=== PATIENT | male | born 1960 | race Caucasian/White ===

== ENCOUNTER → 2019-03-22 15:58 | Outpatient (BNVA) | payer MEDICARE, MEDICAID, SELFPAY | PROVIDERS: Family Provider Nurse Practitioner; PCP Nurse Practitioner; Visit Provider Nurse Practitioner Psychiatric/Mental Health | DX: F41.1 Generalized anxiety disorder (principal); F17.210 Nicotine dependence, cigarettes, uncomplicated | CPT/HCPCS: 99213 ==

== ENCOUNTER 2022-09-25 01:34 | Emergency (ER) | payer MEDICARE, MEDICAID, SELFPAY ==
[2022-09-25 02:00] VITALS: BP 138/86; PULSE 109; RESP 18; TEMP 36.8; O2SAT 98; BMI 26.6
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
[2022-09-25 02:36] VITALS: RESP 18
[2022-09-25] MEDS: oxyCODONE-APAP 5-325 mg Tablet 2 TAB PO (02:36)
[2022-09-25 03:39] VITALS: BP 161/84; PULSE 106; RESP 18; O2SAT 97
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
--- NOTE | 2022-09-27 15:02 | DCPLANNER ---
Addendum entered by Isa Souza 09/27/22 15:11: Patient called family preservation caseworker back and declined at this time. Original Note: manager embalmer funeral director called patient due to no primary care physician - no answer at this time.
== END 2022-09-25 03:44 | disposition home or self-care (01) ==
PROVIDERS: Emergency Provider Emergency Medicine
DX: S93.421A Sprain of deltoid ligament of right ankle, initial encounter (principal); E11.9 Type 2 diabetes mellitus without complications; F17.210 Nicotine dependence, cigarettes, uncomplicated; V20.49XA Other motorcycle driver injured in collision with pedestrian or animal in traffic accident, initial encounter
CPT/HCPCS: 73610; 99283

== ENCOUNTER 2023-02-20 23:37 | Observation (INO) | payer MEDICARE, MEDICAID, SELFPAY ==
[2023-02-20 23:37] VITALS: BP 147/72; PULSE 97; RESP 18; TEMP 36.9; O2SAT 100; BMI 28.5
[2023-02-20 23:52] VITALS: BP 147/72; PULSE 100; RESP 18; O2SAT 96
[2023-02-21] VITALS (63 sets, daily range): BP systolic 99–148; BP diastolic 52–88; PULSE 62–98; RESP 13–18; TEMP 36.3–36.6; O2SAT 95–100; BMI 28.5
[2023-02-21 00:07] LABS: Add Urine Microscopic? NO; Charge for UA Resulting for Rev
[2023-02-21 00:08] LABS: Bilirubin Urine Neg (Negative); Blood Urine Neg (Negative); Glucose Urine UA 4+ (Normal); Influenza A by IFA negative (Negative); Influenza B by IFA negative (Negative); Ketones Urine Negative (Negative); Leukocyte Esterase Urine Negative (Negative); Nitrate Urine Negative (Negative); Protein Urine Neg (Negative); SARS Covid-2 Antigen negative (Negative); Specific Gravity, Urine 1.015 (1.005-1.030); Urine Appearance Clear (CLEAR); Urine Color Yellow (Yellow); Urobilinogen Urine Norm (Negative); pH Urine 5 (5-7)
--- NOTE | 2023-02-21 00:08 | XRR_ITS ---
PROCEDURE INFORMATION: Exam: XR Chest Exam date and time: 02/21/2023 12:13 AM Age: 62 years old Clinical indication: Chest pressure; Patient HX: C/O epigastric/chest pain. ; Additional info: Epigastric pain TECHNIQUE: Imaging protocol: Radiologic exam of the chest. Views: 1 view. COMPARISON: MR thoracic spin wo con* [id number] 01/13/2018 5:15 PM FINDINGS: Lungs: Unremarkable. No consolidation. Pleural spaces: Unremarkable. No pleural effusion. No pneumothorax. Heart/Mediastinum: Unremarkable. No cardiomegaly. Bones/joints: Unremarkable. XR/XR chest 1V portable [id number] IMPRESSION: No acute findings.
[2023-02-21] MEDS: lidocaine 2% viscous 15 ML, aluminum-mag hydrox-simethicon 30 ML, sucralfate oral liq 1 GM PO (00:18)
[2023-02-21] MEDS: ondansetron 2 mg/ML SDV 2 mL 4 MG IVP (00:23)
[2023-02-21] MEDS: morphine 4 mg/mL SDV 1 mL IVP (00:25)
[2023-02-21 00:26] LABS: Ketone (Acetest) Serum Negative (Negative)
--- NOTE | 2023-02-21 00:26 | ED_ITS ---
Documented by User: Karson Porter DO 02/21/23 03:00 HPI - Abdominal Pain 2 General: Chief Complaint: Abdominal Pain Stated Complaint: ABD PAIN Time Seen by Provider: 02/20/23 23:38 History of Present Illness: 62-year-old male patient with a history of diabetes, not currently on treatment, and hypertension. He presents with epigastric pain. He notes a bloating feeling to his stomach. He has been nauseated. No vomiting. No fever. No diarrhea. He was seen at [facility] earlier today with similar symptoms and treated for hypertension with lisinopril. He says he is just not been feeling well. Mild shortness of breath with activity. Associated Symptoms: Reports nausea; Denies chills, diarrhea, fever(s), hematochezia and vomiting Review of Systems 2 Const: Denies: fever(s), chills or body aches Eyes: Denies: change in vision ENMT: Denies: throat pain Card: Reports: chest pain (Epigastric); Denies: palpitations Resp: Reports: dyspnea; Denies: productive cough, non-productive cough or wheezing GI: Reports: abdominal pain and nausea; Denies: vomiting, diarrhea or hematochezia : Denies: flank pain Skin/Breast: Denies: rash Neuro: Denies: headache(s), weakness in extremities, dizziness or confusion PFS ED 2 PFSH: Medical History Cellulitis and abscess of face Diabetes mellitus, type II Nicotine dependence, cigarettes, uncomplicated Generalized anxiety disorder Social History Smoking and tobacco/nicotine status: current every day tobacco/nicotine user cigarettes Packs smoked per day: 1 Physical Exam 2 Const: COMMON NORMALS: no acute distress GENERAL APPEARANCE: cooperative; not ill appearing and not frail appearing HENMT: COMMON NORMALS: normocephalic, atraumatic and Normal external nose present HEAD & SCALP: normocephalic and atraumatic FACE & SINUS: normal facial exam and face symmetric NOSE: Normal external nose present Eye: COMMON NORMALS: Equal, round and reactive pupils present and EOMs intact bilaterally PUPIL: Yes Equal, round and reactive pupils present Neck/C-Spine: GENERAL: Yes trachea midline Chest: CHEST: Yes Symmetrical chest wall rise Resp: COMMON NORMALS: normal respiratory effort, No retractions, No use of accessory muscles and clear to auscultation bilaterally AUSCULTATION: clear to auscultation bilaterally Cardio: COMMON NORMALS: regular rate and regular rhythm RATE: regular rate RHYTHM: regular rhythm GI: INSPECTION: Yes abdominal distension (Mild) PALPATION: Yes Tenderness to palpation present (GI) (Epigastric) Extremity: COMMON NORMALS: no pedal edema Neuro: KAROL COMA SCALE: document GCS findings Karol coma scale eye opening: Spontaneous [place] coma scale verbal response: Orientated [place] coma scale motor response: Obey commands Karol coma scale total score: 15 S ENSORY EXAM: Yes extremities (intact) Psych: COMMON NORMALS: speech normal SPEECH: Yes normal speech Skin: COMMON NORMALS: no rashes or lesions noted GENERAL SKIN EXAM: no rashes or lesions noted Course 2 Vital Signs: Vital signs: Vital Signs Temperature 97.8 F 02/21/23 02:44 Pulse Rate 92 02/21/23 02:47 Respiratory Rate 18 02/21/23 02:47 Blood Pressure 110/62 02/21/23 02:47 Pulse Oximetry 99 02/21/23 02:47 Oxygen Delivery Me thod Room Air 02/21/23 02:47 MDM - Abdominal Pain Medical Decision Making 62-year-old male gentleman presenting with shortness of breath and epigastric pain. His vitals are stable. His hemoglobin is 6.2, repeated to ensure no lab error at 6.4. His platelet count is 100. His blood sugar is 276. Chest x-ray is negative. Abdominal CT is negative for acute pathology. There is some evidence of cirrhosis. This patient is not vomiting. He is having no black or tarry stools. No bright red blood per rectum. Source is unknown at this point. He is microcytic. He is crossmatched for 2 units. Spoke with hospitalist. Will observe. Lab Data 02/21/23 00:42 02/21/23 00:00 Labs/Radiology: Radiology Impressions Chest X-Ray 02/21/23 00:08 IMPRESSION: No acute findings. Abdomen/Pelvis CT 02/21/23 00:39 IMPRESSION: 1. Negative for acute abdominopelvic pathology. 2. No active gastrointestinal bleeding is identified but the assessment is suboptimal without true GI bleed CTA protocol which would also include noncontrast imaging and delayed venous imaging. 3. Multiple secondary findings of advanced liver cirrhosis are present. Laboratory Results WBC 3.64 10^3/uL (3.29-11.43) 02/21/23 00:00 RBC 2.62 10^6/uL (3.85-5.65) L 02/21/23 00:00 Hgb 6.40 g/dL (11.27-16.99) L* 02/21/23 00:42 Hct 20.6 % (37-53) L* 02/21/23 00:42 MCV 78.6 fl (82-101) L 02/21/23 00:00 MCH 23.7 pg (27-33) L 02/21/23 00:00 MCHC 30.1 g/dL (30-55) 02/21/23 00:00 RDW 17.6 % (12.1-15.1) H 02/21/23 00:00 Plt Count 100 10^3/cmm (157-399) L 02/21/23 00:00 MPV 11.1 fL (7.4-10.4) H 02/21/23 00:00 Neut % (Auto) 64.0 % 02/21/23 00:00 Lymph % (Auto) 23.6 % 02/21/23 00:00 [place] % (Auto) 10.2 % 02/21/23 00:00 Eos % (Auto) 1.6 % 02/21/23 00:00 Baso % (Auto) 0.3 % 02/21/23 00:00 Neut # (Auto) 2.33 10^3/uL (1.8-7.7) 02/21/23 00:00 Lymph # (Auto) 0.9 10^3/uL (0.8-4.8) 02/21/23 00:00 [place] # (Auto) 0.4 10^3/uL (0.2-0.9) 02/21/23 00:00 Eos # (Auto) 0.1 10^3/uL (0.0-0.8) 02/21/23 00:00 Baso # (Auto) 0.0 10^3/uL (0.0-0.1) 02/21/23 00:00 Nucleated RBC % (auto) 0 % 02/21/23 00:00 Nucleated RBCs # 0.0 /100WBC 02/21/23 00:00 Sodium 135 mmol/L (136-145) L 02/21/23 00:00 Potassium 4.2 mmol/L (3.5-5.1) 02/21/23 00:00 Chloride 103 mmol/L (98-107) 02/21/23 00:00 Carbon Dioxide 22 mmol/L (22-29) 02/21/23 00:00 Anion Gap 14.2 (5-19) 02/21/23 00:00 BUN 17 mg/dL (8-23) 02/21/23 00:00 Creatinine 0.8 mg/dL (0.7-1.2) 02/21/23 00:00 GFR Calculation 97.3 mL/min (90-130) 02/21/23 00:00 Glucose 276 mg/dL (65-115) H 02/21/23 00:00 POC Glucose 288 mg/dL (70-110) H 02/21/23 00:22 Calculated Osmolality 291 mOsm/kg (285-295) 02/21/23 00:00 Calcium 8.3 mg/dL (8.5-10.5) L 02/21/23 00:00 Total Bilirubin 0.3 mg/dL (0.15-1.2) 02/21/23 00:00 AST 16 U/L (0-40) 02/21/23 00:00 ALT 15 U/L (0-41) 02/21/23 00:00 Alkaline Phosphatase 133 U/L (40-130) H 02/21/23 00:00 Creatine Kinase 62 U/L (39-308) 02/21/23 00:00 Troponin T Baseline 15 ng/L (0-15) 02/21/23 00:00 Delta Troponin T 0.33 ABS# (0-10) 02/21/23 02:25 NT-Pro-B Natriuret Pep 84 pg/mL (0-125) 02/21/23 00:00 Total Protein 6.2 g/dL (6.6-8.7) L 02/21/23 00:00 Albumin 3.2 g/dL (3.5-5.2) L 02/21/23 00:00 Globulin 3.0 g/dL (1.3-4.6) 02/21/23 00:00 Lipase 26 U/L (13-60) 02/21/23 00:00 Urine Color Yellow (Yellow) 02/21/23 00:00 Urine Appearance Clear (CLEAR) 02/21/23 00:00 Urine pH 5 (5-7) 02/21/23 00:00 Ur Specific [place] 1.015 (1.005-1.030) 02/21/23 00:00 Urine Protein Neg (Negative) 02/21/23 00:00 Urine Glucose (UA) 4+ (Normal) H 02/21/23 00:00 Urine Ketones Negative (Negative) 02/21/23 00:00 Urine Blood Neg (Negative) 02/21/23 00:00 Urine Nitrate Negative (Negative) 02/21/23 00:00 Urine Bilirubin Neg (Negative) 02/21/23 00:00 Urine Urobilinogen Norm mg/dL (Negative) 02/21/23 00:00 Ur Leukocyte Esterase Negative (Negative) 02/21/23 00:00 Serum Ketones Negative (Negative) 02/21/23 00:00 Influenza Type A Ag negative (Negative) 02/21/23 00:00 Influenza Type B Ag negative (Negative) 02/21/23 00:00 SARS-CoV-2 Ag (Rapid) negative (Negative) 02/21/23 00:00 Blood Type O Positive 02/21/23 00:42 Rho(D) Type Rh positive 02/21/23 00:42 Antibody Screen Negative 02/21/23 00:42 Crossmatch See Detail 02/21/23 00:42 All radiology interpretation(s) finalized by discharge Discharge Plan Discharge Patient Disposition: Placed in Observation Clinical Impression: Profound anemia Condition: Stable Coding Level of Care Code ED Talent Acquisition Director for Chg Fwd Documented by User: Dewayne Mc MD 02/21/23 00:42 HPI - Abdominal Pain 2 General: Chief Complaint: Abdominal Pain Stated Complaint: ABD PAIN Time Seen by Provider: 02/20/23 23:38 PFSH ED 2 PFSH: Medical History Cellulitis and abscess of face Diabetes mellitus, type II Nicotine dependence, cigarettes, uncomplicated Generalized anxiety disorder Social History Smoking and tobacco/nicotine status: current every day tobacco/nicotine user cigarettes Packs smoked per day: 1 Physical Exam 2 Neuro: KAROL COMA SCALE: document GCS findings Karol coma scale total score: 15 Course 2 Vital Signs: Vital signs: Vital Signs Temperature 97.8 F 02/21/23 02:44 Pulse Rate 92 02/21/23 02:47 Respiratory Rate 18 02/21/23 02:47 Blood Pressure 110/62 02/21/23 02:47 Pulse Oximetry 99 02/21/23 02:47 Oxygen Delivery Me thod Room Air 02/21/23 02:47 MDM - Abdominal Pain Lab Data 02/21/23 00:42 02/21/23 00:00 Labs/Radiology: Radiology Impressions Chest X-Ray 02/21/23 00:08 IMPRESSION: No acute findings. Abdomen/Pelvis CT 02/21/23 00:39 IMPRESSION: 1. Negative for acute abdominopelvic pathology. 2. No active gastrointestinal bleeding is identified but the assessment is suboptimal without true GI bleed CTA protocol which would also include noncontrast imaging and delayed venous imaging. 3. Multiple secondary findings of advanced liver cirrhosis are present. Laboratory Results WBC 3.64 10^3/uL (3.29-11.43) 02/21/23 00:00 RBC 2.62 10^6/uL (3.85-5.65) L 02/21/23 00:00 Hgb 6.40 g/dL (11.27-16.99) L* 02/21/23 00:42 Hct 20.6 % (37-53) L* 02/21/23 00:42 MCV 78.6 fl (82-101) L 02/21/23 00:00 MCH 23.7 pg (27-33) L 02/21/23 00:00 MCHC 30.1 g/dL (30-55) 02/21/23 00:00 RDW 17.6 % (12.1-15.1) H 02/21/23 00:00 Plt Count 100 10^3/cmm (157-399) L 02/21/23 00:00 MPV 11.1 fL (7.4-10.4) H 02/21/23 00:00 Neut % (Auto) 64.0 % 02/21/23 00:00 Lymph % (Auto) 23.6 % 02/21/23 00:00 [place] % (Auto) 10.2 % 02/21/23 00:00 Eos % (Auto) 1.6 % 02/21/23 00:00 Baso % (Auto) 0.3 % 02/21/23 00:00 Neut # (Auto) 2.33 10^3/uL (1.8-7.7) 02/21/23 00:00 Lymph # (Auto) 0.9 10^3/uL (0.8-4.8) 02/21/23 00:00 [place] # (Auto) 0.4 10^3/uL (0.2-0.9) 02/21/23 00:00 Eos # (Auto) 0.1 10^3/uL (0.0-0.8) 02/21/23 00:00 Baso # (Auto) 0.0 10^3/uL (0.0-0.1) 02/21/23 00:00 Nucleated RBC % (auto) 0 % 02/21/23 00:00 Nucleated RBCs # 0.0 /100WBC 02/21/23 00:00 Sodium 135 mmol/L (136-145) L 02/21/23 00:00 Potassium 4.2 mmol/L (3.5-5.1) 02/21/23 00:00 Chloride 103 mmol/L (98-107) 02/21/23 00:00 Carbon Dioxide 22 mmol/L (22-29) 02/21/23 00:00 Anion Gap 14.2 (5-19) 02/21/23 00:00 BUN 17 mg/dL (8-23) 02/21/23 00:00 Creatinine 0.8 mg/dL (0.7-1.2) 02/21/23 00:00 GFR Calculation 97.3 mL/min (90-130) 02/21/23 00:00 Glucose 276 mg/dL (65-115) H 02/21/23 00:00 POC Glucose 288 mg/dL (70-110) H 02/21/23 00:22 Calculated Osmolality 291 mOsm/kg (285-295) 02/21/23 00:00 Calcium 8.3 mg/dL (8.5-10.5) L 02/21/23 00:00 Total Bilirubin 0.3 mg/dL (0.15-1.2) 02/21/23 00:00 AST 16 U/L (0-40) 02/21/23 00:00 ALT 15 U/L (0-41) 02/21/23 00:00 Alkaline Phosphatase 133 U/L (40-130) H 02/21/23 00:00 Creatine Kinase 62 U/L (39-308) 02/21/23 00:00 Troponin T Baseline 15 ng/L (0-15) 02/21/23 00:00 Delta Troponin T 0.33 ABS# (0-10) 02/21/23 02:25 NT-Pro-B Natriuret Pep 84 pg/mL (0-125) 02/21/23 00:00 Total Protein 6.2 g/dL (6.6-8.7) L 02/21/23 00:00 Albumin 3.2 g/dL (3.5-5.2) L 02/21/23 00:00 Globulin 3.0 g/dL (1.3-4.6) 02/21/23 00:00 Lipase 26 U/L (13-60) 02/21/23 00:00 Urine Color Yellow (Yellow) 02/21/23 00:00 Urine Appearance Clear (CLEAR) 02/21/23 00:00 Urine pH 5 (5-7) 02/21/23 00:00 Ur Specific [place] 1.015 (1.005-1.030) 02/21/23 00:00 Urine Protein Neg (Negative) 02/21/23 00:00 Urine Glucose (UA) 4+ (Normal) H 02/21/23 00:00 Urine Ketones Negative (Negative) 02/21/23 00:00 Urine Blood Neg (Negative) 02/21/23 00:00 Urine Nitrate Negative (Negative) 02/21/23 00:00 Urine Bilirubin Neg (Negative) 02/21/23 00:00 Urine Urobilinogen Norm mg/dL (Negative) 02/21/23 00:00 Ur Leukocyte Esterase Negative (Negative) 02/21/23 00:00 Serum Ketones Negative (Negative) 02/21/23 00:00 Influenza Type A Ag negative (Negative) 02/21/23 00:00 Influenza Type B Ag negative (Negative) 02/21/23 00:00 SARS-CoV-2 Ag (Rapid) negative (Negative) 02/21/23 00:00 Blood Type O Positive 02/21/23 00:42 Rho(D) Type Rh positive 02/21/23 00:42 Antibody Screen Negative 02/21/23 00:42 Crossmatch See Detail 02/21/23 00:42 Discharge Plan Discharge Patient Disposition: Placed in Observation Clinical Impression: Profound anemia Condition: Stable Coding Level of Care Code ED Talent Acquisition Director for Stephanie Stewart
[2023-02-21 00:32] LABS: Glucose Point of Care 288 mg/dL (70-110)
[2023-02-21 00:34] LABS: Basophils % 0.3 %; Eosinophils # 0.1 10^3/uL (0.0-0.8); Eosinophils % 1.6 %; Lymphocytes # 0.9 10^3/uL (0.8-4.8); Lymphocytes % 23.6 %; Mean Corpuscular HGB Conc 30.1 g/dL (30-55); Mean Corpuscular Hemoglobin 23.7 pg (27-33); Mean Corpuscular Volume 78.6 fl (82-101); Mean Platelet Volume 11.1 fL (7.4-10.4); Monocytes # 0.4 10^3/uL (0.2-0.9); Monocytes % 10.2 %; Neutrophils # 2.33 10^3/uL (1.8-7.7); Nucleated Red Blood Cells % 0 %; Platelet Count 100 10^3/cmm (157-399); Red Blood Count 2.62 10^6/uL (3.85-5.65); Red Cell Distribution Width 17.6 % (12.1-15.1); White Blood Count 3.64 10^3/uL (3.29-11.43)
[2023-02-21 00:37] LABS: Hematocrit 20.6 % (37-53)
--- NOTE | 2023-02-21 00:39 | CTR_ITS ---
PROCEDURE INFORMATION: Exam: CT Abdomen And Pelvis With Contrast Exam date and time: 02/21/2023 12:53 AM Age: 62 years old Clinical indication: Pain and abnormal findings; Abnormal lab test; Other: Abnormal hgb/hct; Abdominal pain; Patient HX: C/O epigastric pain. Hgb of 6.2. Hct of 20.6. ; Additional info: Epigastric pain, anemia ? gi bleed TECHNIQUE: Imaging protocol: Computed tomography of the abdomen and pelvis with contrast. Radiation optimization: All CT scans at this facility use at least one of these dose optimization techniques: automated exposure control; mA and/or kV adjustment per patient size (includes targeted exams where dose is matched to clinical indication); or iterative reconstruction. Contrast material: OMNI 350; Contrast volume: 100 ml; Contrast route: INTRAVENOUS (IV); COMPARISON: CR (CHEST, ) 02/21/2023 12:13 AM RADIATION DOSE METRICS: Total DLP (mGy-cm): 752.93 FINDINGS: Liver: Nodular liver. Negative for mass. Gallbladder and bile ducts: Normal. No calcified stones. No ductal dilation. Pancreas: Normal. No ductal dilation. Spleen: Moderate splenomegaly. Adrenal glands: Normal right adrenal gland. Small mass of the left adrenal gland measures 2.1 cm demonstrating mostly fat. Lesion consistent with benign myelolipoma. Kidneys and ureters: Normal. No hydronephrosis. Stomach and bowel: Unremarkable. No obstruction. No mucosal thickening. Appendix: No evidence of appendicitis. Intraperitoneal space: Moderate ascites. No free air. Vasculature: Thoracic esophageal varices. Recanalized umbilical vein. Patent portal venous system. Mild rectal varices. Unremarkable abdominal aorta with minimal plaque. Negative for aneurysm. Negative for dissection. Lymph nodes: Unremarkable. No enlarged lymph nodes. Urinary bladder: Unremarkable as visualized. Reproductive: Unremarkable as visualized. Bones/joints: Unremarkable. No acute fracture. Soft tissues: Unremarkable. CT/CT abdomen pelvis w con* [id number] IMPRESSION: 1. Negative for acute abdominopelvic pathology. 2. No active gastrointestinal bleeding is identified but the assessment is suboptimal without true GI bleed CTA protocol which would also include noncontrast imaging and delayed venous imaging. 3. Multiple secondary findings of advanced liver cirrhosis are present.
[2023-02-21 00:42] LABS: Troponin(5th) Baseline 15 ng/L (0-15)
[2023-02-21 00:49] LABS: Alanine Aminotransferase 15 U/L (0-41); Albumin Level 3.2 g/dL (3.5-5.2); Alkaline Phosphatase 133 U/L (40-130); Anion Gap 14.2 (5-19); Aspartate Amino Transferase 16 U/L (0-40); Blood Urea Nitrogen 17 mg/dL (8-23); Calcium 8.3 mg/dL (8.5-10.5); Carbon Dioxide 22 mmol/L (22-29); Chloride 103 mmol/L (98-107); Creatine Phosphokinase 62 U/L (39-308); Glomerular Filtration Rate 97.3 mL/min (90-130); Glucose 276 mg/dL (65-115); Lipase 26 U/L (13-60); NT Pro B Type Natriuretic Pept 84 pg/mL (0-125); Osmolality Calculated 291 mOsm/kg (285-295); Potassium 4.2 mmol/L (3.5-5.1); Sodium 135 mmol/L (136-145); Total Bilirubin 0.3 mg/dL (0.15-1.2); Total Protein 6.2 g/dL (6.6-8.7)
[2023-02-21] MEDS: iohexol 350 mg/mL 500 mL Btl (per mL) IV (01:03)
[2023-02-21 01:15] LABS: Hematocrit 20.6 % (37-53)
--- NOTE | 2023-02-21 02:08 | ECG_ITS ---
[facility] Test Date: 2023-02-20 Pat Name: Shaji Jauregui Department: Room: Gender: Male Smoking Pipe Liner: : 1960 Requested By: Karson Buchanan Order Number: [id number] Jesika MD: Gus Mccall M.D. Measurements Intervals [place] Rate: 101 P: 39 IA: 159 QRS: 3 QRSD: 86 T: 99 QT: 364 QTc: 472 Interpretive Statements SINUS TACHYCARDIA NONSPECIFIC T-WAVE ABNORMALITY Compared to ECG 04/07/2016 13:12:40 T-wave abnormality now present Sinus rhythm no longer present Poor R-wave progression no longer present Electronically Signed On 02-21-2023 8:00:18 TECHNOLOGY RISK INTERN by Gus Mccall M.D. [id number]
[2023-02-21 02:54] LABS: Troponin 5 2HR 15.33 ng/L (0-15); Troponin 5 2HR Delta 0.33 ABS# (0-10)
[2023-02-21] MEDS: sodium chloride 0.9% 100 mL Bag 50 ML IV ×2 (02:56→02:57)
--- NOTE | 2023-02-21 03:03 | PM.HP ---
Providers/Chief Complaint Chief Complaint: ABD PAIN History of Present Illness Shaji Jauregui is a 62 year old male with a past medical history significant for generalized anxiety, type 2 diabetes mellitus, hypertension, and tobacco use disorder who presents to the emergency room with epigastric pain. Endorses associated symptoms of headache, generalized malaise, fatigue, and nausea. Denies fevers or vomiting. He was seen earlier today at [facility] where he was diagnosed with hypertension and prescribed lisinopril. He has his discharge paperwork but it does not show any of his laboratory values on it. Further workup in the emergency department revealed severe anemia. He states he was not told anything about this at [facility]. Patient denies a known history of anemia. He reports before today, it has been a long time since his last labs. It may be the labs that were conducted here in 2019 when his hemoglobin was normal. He denies significant NSAID use. He states that he does not like to take pills in general. Denies significant alcohol abuse. He reports his stools been brown in color and normal in caliber and consistently. He reports a episode of bloating over the summer that was similar to the symptoms he has been having today. He states he did a stool card testing for colon cancer screening about a year ago through an outside clinic. He denies any prior colonoscopies. Denies history of colon cancers. He reports she was told he had ulcers as a child. He does endorse increased life stresses recently. Patient also found to have thrombocytopenia with PLT of 100. Review of Systems Narrative: A complete review of systems was obtained and is negative except as stated in HPI. Medications/Allergies Allergies Allergy/AdvReac Type Severity Reaction Status Date / Time codeine Allergy Unknown Unknown Verified 02/20/23 23:44 flu vaccine Allergy Intermediate ADR-Cramping Uncoded 02/20/23 23:44 of the Muscles PFSH Acute PFSH: Medical History Low blood pressure Gas bloat syndrome Acute bronchitis Cellulitis and abscess of face Diabetes mellitus, type II Nicotine dependence, cigarettes, uncomplicated Generalized anxiety disorder Family History Denies family history of Colon cancer Social History Smoking and tobacco/nicotine status: current every day tobacco/nicotine user cigarettes Packs smoked per day: 1 Vitals/I&O/Wt Last Vital Signs Temp 97.9 F 02/21/23 03:00 Pulse 96 02/21/23 03:00 Resp 18 02/21/23 03:00 BP 110/61 02/21/23 03:00 Pulse Ox 99 02/21/23 03:00 O2 Del Method Room Air 02/21/23 02:47 02/20/23 02/20/23 02/21/23 14:59 22:59 06:59 Intake Total 0 / 0 Balance 0 / 0 Weight last 48 hrs Weight 82.554 kg Physical Exam Narrative: General: Patient is awake and alert. Head: Normocephalic. Atraumatic. EOM intact. Pale mucous membranes. Neck: No JVD. Cardiovascular: RRR. No gallops. No murmurs. Lungs: Clear to auscultation, no use of accessory muscles, no crackles or wheezes. Skin: No jaundice. No rashes. Abdomen: Normal bowel sounds, abdomen soft and nontender. Extremities: No cyanosis or clubbing. Musculoskeletal: No swollen or erythematous joints. Neurological: Moves all 4 extremities. No myoclonus. Data 02/21/23 00:42 02/21/23 00:00 A&P Assessment and plan (1) Profound anemia: Symptomatic microcytic anemia Check iron levels Transfused 2 packed red blood cells Telemetry monitoring Repeat labs after transfusions (2) Thrombocytopenia: Peripheral smear Trend (3) Epigastric pain: Start empiric PPI Consider surgery consultation or referral pending clinical course (4) Hypertension: Hold antihypertensives Monitor blood pressure (5) Hyperglycemia due to type 2 diabetes mellitus: Check A1c Sliding-scale insulin correction (6) Myocardial injury: Telemetry monitoring (7) Nicotine dependence, cigarettes, uncomplicated: Would benefit from cessation Plan DVT prophylaxis: SCD CODE STATUS: Full code Attestations Medical Necessity Statement*: Patient presents with epigastric pain, found to have microcytic anemia requiring transfusion of 2 packed red blood cells with expected hospitalization not to cross 2 midnights. Coding Level of Care Code Acute Code for Chg Fwd Diagnoses Profound anemia D64.9 Thrombocytopenia D69.6 Epigastric pain R10.13 Hypertension I10 Hyperglycemia due to type 2 diabetes mellitus E11.65 Myocardial injury I5A Nicotine dependence, cigarettes, uncomplicated F17.210
[2023-02-21 04:36] LABS: LAB Peripheral Smear Sent for Review
[2023-02-21 04:43] LABS: Lactate Dehydrogenase 120 U/L (135-225)
--- NOTE | 2023-02-21 06:08 | ECG_ITS ---
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 [id number]
[2023-02-21 06:12] LABS: Estmated Average Glucose 163; Hemoglobin A1C 7.3 % (4.0-6.0)
[2023-02-21 06:19] LABS: Troponin 5 6HR 17.06 ng/L (0-15); Troponin 5 6HR Delta 2.06 ng/L (0-12)
[2023-02-21] MEDS: pantoprazole 40 mg SDV IVP ×2 (06:39→18:20)
[2023-02-21 07:56] LABS: Glucose Point of Care 239 mg/dL (70-110)
[2023-02-21 08:21] LABS: INR 1.16 (0.8-1.2)
[2023-02-21 09:11] LABS: Hepatitis A Antibody IgM Non-Reactive (Nonreactive); Hepatitis B Core IgM Non-Reactive (Nonreactive); Hepatitis B Surface Antigen Non-Reactive (Nonreactive); Hepatitis C Virus Antibody Non-Reactive (Nonreactive)
[2023-02-21] MEDS: sodium chloride 0.9% 1,000 ML 75 ML IV ×2 (09:13→22:24)
[2023-02-21 09:44] LABS: HIV 1 & 2 Antibody Non-Reactive (Non-Reactiv); HIV 1 & 2 Antigen Non-Reactive (Non-Reactiv)
[2023-02-21 10:54] LABS: Ferritin 8 ng/mL (30-400); Gamma Glutamyl Transferase 106 U/L (8-61); Iron 12 ug/dL (59-158); Percent Saturation 3.4 % (20-50); Total Iron Binding Capacity 346 mcg/dl; Unsaturated Iron Binding 334 ug/dL (112-347)
--- NOTE | 2023-02-21 11:58 | W.PM.EVENTAC ---
Event Note Event Note: History and physical reviewed. I have repeated his hemoglobin is 8.6. INR is checked now and normal. He is certainly iron deficient. Surgery consult obtained for possible endoscopy. Possible EGD and colonoscopy tomorrow. Patient requested HIV and hepatitis screening which are negative. Troponin was done and showed no significant concerning trend. EKGs reviewed. Mild abnormality on admit, will check echocardiogram. Reviewed in detail with patient current plan.
--- NOTE | 2023-02-21 11:59 | USCV_ITS ---
Shaji Jauregui Age: 62 Gender: M : 1960 Exam Date: 02/21/2023 13:21 Ordering Phys: Olman Arredondo MD Technologist: Saulo Sweeney [place] [facility] [place]: chest pain sob BP: 142 / 86 HR: 100 Rhythm: Sinus Technical Quality: Adequate MEASUREMENTS (Male / Female) Normal Values 2D ECHO LV Diastolic Diameter PLAX 3.9 cm 4.2 - 5.9 / 3.9 - 5.3 cm LV Systolic Diameter PLAX 1.9 cm IVS Diastolic Thickness 1.1 cm 0.6 - 1.0 / 0.6 - 0.9 cm IVS Systolic Thickness 1.4 cm LVPW Diastolic Thickness 1.5 cm 0.6 - 1.0 / 0.6 - 0.9 cm LVPW Systolic Thickness 1.2 cm LVOT Diameter 2.0 cm LV Ejection Fraction 2D Teich 82.2 % LV Ejection Fraction MOD 2C 65.8 % LV Ejection Fraction 2C AL 64.2 % LA Diameter 3.7 cm IVC Diameter 1.2 cm M-MODE Aortic Annulus Diameter 3.0 cm LA Ao Ratio MM 1.3 MV E Point Septal Separation 0.7 cm DOPPLER AV Peak Velocity 140.0 cm/s LVOT Peak Velocity 113.0 cm/s AV Area Cont Eq vti 2.9 cm squared AV Area Cont Eq pk 2.6 cm squared MV Area PHT 5.0 cm squared Mitral E to A Ratio 0.9 MV E' Velocity 63.0 cm/s Mitral E to MV E' Ratio 10.2 Mitral E to LV E' Lateral Ratio 10.8 Mitral E to LV E' Septal Ratio 9.8 TR Peak Velocity 155.3 cm/s TR Peak Gradient 9.6 mmHg TV Peak E Velocity 78.0 cm/s Right Atrial Pressure 3.0 mmHg Pulmonary Artery Systolic Pressu 12.6 mmHg RV Acceleration Time 0.1 s FINDINGS Left Ventricle Normal left ventricular size and systolic function, EF 66 %. No regional wall motion abnormalities. Mild left ventricular hypertrophy. Grade I/IV diastolic dysfunction (abnormal relaxation filling pattern), normal to mildly elevated filling pressures. Right Ventricle The right ventricle is normal in size and function. Right Atrium The right atrium is normal in size. Left Atrium Mildly increased left atrial size. Mitral Valve No gross abnormalities noted . Aortic Valve No gross abnormalities noted Tricuspid Valve No gross abnormalities noted Pulmonic Valve No gross abnormalities noted Pericardium Normal pericardium without effusion. Aorta Normal ascending aorta dimension. IVC The inferior vena cava appears normal. CONCLUSIONS Normal left ventricular size and systolic function, EF 66 %. No regional wall motion abnormalities. Mild left ventricular hypertrophy. Grade I/IV diastolic dysfunction (abnormal relaxation filling pattern), normal to mildly elevated filling pressures. Mildly increased left atrial size. There is no pericardial effusion. There are no intracardiac masses. No similar previous studies are available for comparison Dr Meenakshi Seals MD FAC (Electronically Signed) Final Date: 21 February 2023 18:23 S
[2023-02-21] MEDS: insulin lispro 100 unit/1 mL SUBCUT ×2 (13:32→18:19)
--- NOTE | 2023-02-21 15:30 | P.CONIM_ITS ---
Providers/Reason For Consult 2 Consulting Physician/Specialty*: Dr. Omar Laws DO/General surgery Reason for Consult*: Iron deficiency anemia Attending Physician: Olman Arredondo MD History of Present Illness History of Present Illness Shaji Jauregui is a 62 year old male who presented to the hospital due to lightheadedness and dizziness. He reports that he went to his primary care physician last week and was told that his blood pressure was a little low. Yesterday he went to another facility and was told that his blood pressure was high and he was given antihypertensive. Today he began feeling lightheaded and dizzy so he came to the ER. He reports that he was having some epigastric and left lower quadrant abdominal pain intermittently that was relieved with a bowel movement yesterday. He denies any nausea, emesis, diarrhea, hematochezia and/or melena. He was found to be anemic with iron deficiency in the ER. He has never had a colonoscopy. He denies any family history of colon cancer. He denies any heartburn. Review of Systems 2 General: Reports: 10 or more systems reviewed and unremarkable except in HPI and below Medications/Allergies Home Medications Medication Instructions Recorded Confirmed Last Taken Type lisinopril 10 mg tablet 10 mg PO DAILY 02/21/23 02/21/23 02/21/23 History Allergies Allergy/AdvReac Type Severity Reaction Status Date / Time codeine Allergy Unknown Unknown Verified 02/20/23 23:44 flu vaccine Allergy Intermediate ADR-Cramping Uncoded 02/20/23 23:44 of the Muscles Current Medications Generic Name Dose Route Start Last Admin Trade Name Freq PRN Reason Stop Dose Admin Sodium Chloride 1,000 mls @ 75 mls/hr 02/21/23 08:45 02/21/23 09:13 Sodium Chloride 0.9% IV 75 mls/hr .[id number] MAYA Administration Insulin Human Lispro 0 unit 02/21/23 08:00 02/21/23 13:32 Insulin Lispro 100 Unit/1 Ml SUBCUT 8 unit TIDWM MAYA Administration Protocol Pantoprazole Sodium 40 mg 02/21/23 06:30 02/21/23 06:39 Pantoprazole 40 Mg Sdv IVP 40 mg Q12H MAYA Administration PFSH Acute 2 PFSH: Medical History Low blood pressure Gas bloat syndrome Acute bronchitis Cellulitis and abscess of face Diabetes mellitus, type II Nicotine dependence, cigarettes, uncomplicated Generalized anxiety disorder Family History Denies family history of Colon cancer Social History Smoking and tobacco/nicotine status: current every day tobacco/nicotine user cigarettes Packs smoked per day: 1 Vitals/I&O/Wt Last Vital Signs Temp 98 F 02/21/23 04:15 Pulse 97 02/21/23 14:21 Resp 16 02/21/23 14:21 BP 99/52 02/21/23 14:21 Pulse Ox 99 02/21/23 14:21 O2 Del Method Room Air 02/21/23 09:40 02/21/23 02/21/23 02/21/23 06:59 14:59 22:59 Intake Total 700 / 700 Balance 700 / 700 Weight last 48 hrs Weight 182 lb Physical Exam 2 Narrative: General : Patient is well developed , no acute distress, oriented x3 Head : Normal cephalic, a-traumatic. Ears : Pinnae and external canal are normal. Hearing is normal. Eyes : PERRLA, Sclera and injection are normal. No conjunctival discharge. Nose : Mucous membranes are without erythema. Throat : buccal mucosa is normal, gums are without significant recession or hypertrophy. Lungs : Equal chest rise bilaterally, no use of accessory muscles, trachea is midline. Cor : Rate and rhythm are normal. Abdomen : Soft, mild distention, NT, no g/r/m Extremities : No edema, no cyanosis or clubbing, dorsalis pedis pulses are present bilaterally, non-tender to palpation of calves. Upper extremities are normal bilaterally. Back : non-tender to palpation, no CVA tenderness. Neuro : CN II - XII intact, Upper and lower extremities have equal and full strength Data 02/21/23 08:00 02/21/23 00:00 A&P Assessment and plan (1) Epigastric pain: (2) Thrombocytopenia: (3) Iron deficiency anemia: Plan Bowel prep EGD Colonoscopy The risks and benefits of the procedure, including bleeding, infection, intestinal perforation requiring surgery, missed lesion were explained to the patient. The patient is understanding of the risks and wishes to proceed. Medical management per primary Coding Level of Care Code 32004 Diagnoses Epigastric pain R10.13 Thrombocytopenia D69.6 Iron deficiency anemia D50.9
[2023-02-21] MEDS: peg /e-lyte soln 4,000 mL Btl 4000 ML PO (16:45)
[2023-02-21 17:31] LABS: Glucose Point of Care 207 mg/dL (70-110)
[2023-02-21 21:21] LABS: Glucose Point of Care 151 mg/dL (70-110)
[2023-02-22] VITALS (13 sets, daily range): BP systolic 99–150; BP diastolic 60–75; PULSE 77–95; RESP 16–18; TEMP 36.2–36.9; O2SAT 94–99
[2023-02-22] MEDS: pantoprazole 40 mg SDV IVP (05:39)
[2023-02-22 06:04] LABS: Basophils % 0.6 %; Eosinophils # 0.1 10^3/uL (0.0-0.8); Eosinophils % 1.7 %; Hematocrit 24.6 % (37-53); Lymphocytes # 0.7 10^3/uL (0.8-4.8); Lymphocytes % 19.7 %; Mean Corpuscular HGB Conc 31.7 g/dL (30-55); Mean Corpuscular Hemoglobin 25.2 pg (27-33); Mean Corpuscular Volume 79.6 fl (82-101); Mean Platelet Volume 10.6 fL (7.4-10.4); Monocytes # 0.4 10^3/uL (0.2-0.9); Monocytes % 10.7 %; Neutrophils # 2.31 10^3/uL (1.8-7.7); Nucleated Red Blood Cells % 0 %; Platelet Count 96 10^3/cmm (157-399); Red Blood Count 3.09 10^6/uL (3.85-5.65); Red Cell Distribution Width 16.8 % (12.1-15.1); White Blood Count 3.45 10^3/uL (3.29-11.43)
[2023-02-22 06:27] LABS: Alanine Aminotransferase 14 U/L (0-41); Albumin Level 2.8 g/dL (3.5-5.2); Alkaline Phosphatase 113 U/L (40-130); Anion Gap 13.7 (5-19); Aspartate Amino Transferase 16 U/L (0-40); Blood Urea Nitrogen 9 mg/dL (8-23); Calcium 7.5 mg/dL (8.5-10.5); Carbon Dioxide 22 mmol/L (22-29); Chloride 106 mmol/L (98-107); Globulin 2.9 g/dL (1.3-4.6); Glomerular Filtration Rate 113.5 mL/min (90-130); Glucose 155 mg/dL (65-115); Magnesium 1.7 mg/dL (1.7-2.3); Osmolality Calculated 288 mOsm/kg (285-295); Potassium 3.7 mmol/L (3.5-5.1); Sodium 138 mmol/L (136-145); Total Bilirubin 0.6 mg/dL (0.15-1.2); Total Protein 5.7 g/dL (6.6-8.7)
[2023-02-22 06:32] LABS: Glucose Point of Care 153 mg/dL (70-110)
--- NOTE | 2023-02-22 09:13 | PC.CHAP ---
Pastoral Care Encounter/Spiritual Assessment Type of Contact [] Declined visual c developer visit [] Patient/Family/Request visit [] Outpatient visit [] Follow-up visit [] Physician referral [] Code/Alert [x] Routine visit [] Staff referral [] Actively dying [] Patient sleeping [] Family support [] [] Out of room [] Palliative care [] [] Receiving care in room [] Pre-surgical visit [] Trauma [] Long length of stay [] ICU visit [] Other: Relational/Emotional Strength [x] Patient feels connected with others/family/visitors/staff [] Distress [] Loneliness/isolation [] Abandonment Spirituality of Patient [x] Person of Josiane [] Attends Voodoo of their Josiane [x] Believes in Prayer [] Reads Bible or Baptist materials [] There are Spiritual issues to be addressed Cipher Expert Interventions [x] Prayer [x] Active listening [] Non-anxious presence [x] Spiritual/emotional support [] Crisis/trauma care [] Spiritual counseling [] Bereavement support [] Provided bereavement packet [] Provided Bible/devotional materials [] Provided toy/stuffed animal, coloring book to patient or family member [] Provided Communion [] Anointing/Warner [] Salvation [x] Completed spiritual assessment [] Other: Impact on Illness or Injury [] Angry [] Fearful [] Anxious [] Often cries [] Exhaustion [] Unable to work [] Unable to attend anabaptist [] Unable to walk/stand [] Unable to read [] Unable to drive [] Unable to eat/drink [] Unable to sleep [] Unable to be with family [] Patient intubated [] Other: Summary Time spent with patient 5 min
[2023-02-22 11:39] LABS: Glucose Point of Care 171 mg/dL (70-110)
[2023-02-22] MEDS: sodium chloride 0.9% 1,000 ML 30 ML IV (13:19)
--- NOTE | 2023-02-22 13:27 | P.ANESASSM_ITS ---
Pre-Anesthetic Assessment Height/Weight: Height 1.7 m Weight 91.716 kg Temp Pulse Resp BP Pulse Ox O2 Del Method 98.5 F 94 18 150/66 98 Room Air 02/22/23 12:54 02/22/23 12:54 02/22/23 12:54 02/22/23 12:54 02/22/23 12:54 02/22/23 12:54 Operation Date: 02/22/23 14:00 Proposed Procedures p EGD(Not Applicable) - DO jose Jernigan Colonoscopy(Not Applicable) - Omar Laws DO Familial anesthetic complications: None Was Beta Mariela taken within 24 hours: N/A Was Clonidine taken within 24 hours: N/A Last intake: > 8 hrs Social No alcohol and No tobacco Exam alert, oriented x 3, clear to auscultation bilaterally and regular rate & rhythm Airway Mallampati: Class III Dentition: full Pulmonary Sleep Apnea CV/HEM Hypertension > 4 mets Metabolic Diabetes Mellitus Anesthetic Plan ASA status: 3 Anesthesia: MAC Risk of > 500 ml blood loss (7ml/kg in children): No Medications/Allergies Home Medications Medication Instructions Recorded Confirmed Last Taken Type lisinopril 10 mg tablet 10 mg PO DAILY 02/21/23 02/21/23 02/21/23 History Allergies Allergy/AdvReac Type Severity Reaction Status Date / Time codeine Allergy Unknown Unknown Verified 02/20/23 23:44 flu vaccine Allergy Intermediate ADR-Cramping Uncoded 02/20/23 23:44 of the Muscles Current Medications Generic Name Dose Route Start Last Admin Trade Name Freq PRN Reason Stop Dose Admin Sodium Chloride 1,000 mls @ 75 mls/hr 02/21/23 08:45 02/21/23 22:24 Sodium Chloride 0.9% IV 75 mls/hr .[id number] MAYA Administration Sodium Chloride 1,000 mls @ 30 mls/hr 02/22/23 13:00 02/22/23 13:19 Sodium Chloride 0.9% IV 02/23/23 12:59 30 mls/hr .Q24H MAYA Administration Insulin Human Lispro 0 unit 02/21/23 08:00 02/22/23 12:28 Insulin Lispro 100 Unit/1 Ml SUBCUT Not Given TIDWM MAYA Protocol Pantoprazole Sodium 40 mg 02/21/23 06:30 02/22/23 05:39 Pantoprazole 40 Mg Sdv IVP 40 mg Q12H MAYA Administration PFSH Anesthesia Medical History Low blood pressure Gas bloat syndrome Acute bronchitis Cellulitis and abscess of face Diabetes mellitus, type II Nicotine dependence, cigarettes, uncomplicated Generalized anxiety disorder Family History Denies family history of Colon cancer Social History Smoking and tobacco/nicotine status: current every day tobacco/nicotine user cigarettes Packs smoked per day: 1 Data Anesthesia 02/22/23 05:05 02/22/23 05:05 Short CBC 02/21/23 02/21/23 02/21/23 Range/Units 00:00 00:42 08:00 WBC 3.64 (3.29-11.43) 10^3/uL Hgb 6.20 L* 6.40 L* 8.60 L D (11.27-16.99) g/dL Hct 20.6 L* 20.6 L* 27.0 L D (37-53) % MCV 78.6 L (82-101) fl Plt Count 100 L (157-399) 10^3/cmm Neut % (Auto) 64.0 % Neut # (Auto) 2.33 (1.8-7.7) 10^3/uL 02/22/23 Range/Units 05:05 WBC 3.45 (3.29-11.43) 10^3/uL Hgb 7.80 L (11.27-16.99) g/dL Hct 24.6 L (37-53) % MCV 79.6 L (82-101) fl Plt Count 96 L (157-399) 10^3/cmm Neut % (Auto) 67.0 % Neut # (Auto) 2.31 (1.8-7.7) 10^3/uL BMP 02/21/23 02/22/23 00:00 05:05 Sodium 135 L 138 Potassium 4.2 3.7 Chloride 103 106 Carbon Dioxide 22 22 BUN 17 9 Creatinine 0.8 0.7 Glucose 276 H 155 H Calcium 8.3 L 7.5 L Cardiac Enzymes 02/21/23 02/21/23 02/21/23 Range/Units 00:00 02:25 05:54 Creatine Kinase 62 (39-308) U/L Troponin T Baseline 15 (0-15) ng/L Troponin T 120 Minute 15.33 H (0-15) ng/L Delta Troponin T 0.33 (0-10) ABS# Troponin T Hi Sens 6Hr 17.06 H (0-15) ng/L Troponin T Hi Sens 6Hr Delta 2.06 (0-12) ng/L NT-Pro-B Natriuret Pep 84 (0-125) pg/mL Liver Function 02/21/23 02/22/23 Range/Units 00:00 05:05 Total Bilirubin 0.3 0.6 (0.15-1.2) mg/dL GGT 106 H (8-61) U/L AST 16 16 (0-40) U/L ALT 15 14 (0-41) U/L Alkaline Phosphatase 133 H 113 (40-130) U/L Albumin 3.2 L 2.8 L (3.5-5.2) g/dL Urine 02/21/23 Range/Units 00:00 Urine Color Yellow (Yellow) Urine Appearance Clear (CLEAR) Urine pH 5 (5-7) Ur Specific [place] 1.015 (1.005-1.030) Urine Protein Neg (Negative) Urine Glucose (UA) 4+ H (Normal) Urine Ketones Negative (Negative) Urine Nitrate Negative (Negative) Urine Bilirubin Neg (Negative) Ur Leukocyte Esterase Negative (Negative) Blood Bank 02/21/23 00:42 Blood Type O Positive Rho(D) Type Rh positive Antibody Screen Negative COVID Results 02/21/23 00:00 SARS-CoV-2 Ag (Rapid) negative Coags 02/21/23 08:00 PT 15.20 H INR 1.16 Cardiac Studies: 2 Echocardiogram 02/21/23
--- NOTE | 2023-02-22 13:51 | P.PN_ITS ---
Vitals/I&O/Wt Last Vital Signs Temp 98.5 F 02/22/23 12:54 Pulse 94 02/22/23 12:54 Resp 18 02/22/23 12:54 BP 150/66 02/22/23 12:54 Pulse Ox 98 02/22/23 12:54 O2 Del Method Room Air 02/22/23 12:54 02/21/23 02/22/23 02/22/23 22:59 06:59 14:59 Intake Total 1468.75 / 1468.75 Balance 1468.75 / 1468.75 Weight last 48 hrs Weight 202 lb 3.2 oz Weight 182 lb Weight 182 lb Data 02/22/23 05:05 02/22/23 05:05 A&P Assessment and plan (1) Epigastric pain: (2) Thrombocytopenia: (3) Iron deficiency anemia: Plan EGD Colonoscopy The risks and benefits of the procedure, including bleeding, infection, intestinal perforation requiring surgery, missed lesion were explained to the patient. The patient is understanding of the risks and wishes to proceed. Medical management per primary Attestations 2 Medical Necessity Statement*: Per primary Coding Level of Care Code Acute Code for Chg Fwd Diagnoses Epigastric pain R10.13 Thrombocytopenia D69.6 Iron deficiency anemia D50.9
--- NOTE | 2023-02-22 14:23 | PC.NURSE ---
1420- Blood transfusion turned over to anesthesia while pt in procedure.
--- NOTE | 2023-02-22 15:15 | ANE.PACU2 ---
Inpatient post-anesthesia follow up: Airway intact: Yes Vital signs: Temperature 97.2 F Pulse Rate 88 Respiratory Rate 16 Blood Pressure 112/63 Pulse Oximetry 98 Oxygen Delivery Me thod [ Room Air Current Rate & Del génesis] Oxygen Delivery Me thod Room Air Oxygen Flow Rate Fraction of Inspir ed Oxygen Hydration adequate: Yes Nausea and vomiting: No Pain level: 1 Mental status: Baseline
[2023-02-22] MEDS: sodium chloride 0.9% (100 ml) 100 ML 125 ML (15:47)
--- NOTE | 2023-02-22 15:53 | PM.DCS ---
Discharge Providers Date of Admission: 02/21/23 02:56 Date of Discharge: February 22, 2023 Attending Provider at Admission: Dewayne Mc MD Attending Provider at Discharge: Olman Arredondo MD Diagnoses at Discharge Discharge Diagnosis (1) Epigastric pain: Status: Acute (2) Thrombocytopenia: Status: Acute (3) Iron deficiency anemia: Status: Acute Reason for Visit Reason for Visit: ABD PAIN Hospital Course Hospital Course Patient is a 62-year-old white male who presented to the hospital with some epigastric fullness, and was found to be profoundly anemic. He was transfused 2 units of packed red blood cells for hemoglobin of 6.2. He received 1 additional unit on February 22 as his hemoglobin was 7.8. While in the hospital he had no evidence of active bleeding. An EGD and colonoscopy was completed, which demonstrated some gastritis that was severe with no active bleeding, mild proctitis, nonbleeding esophageal varices. Patient remained stable while in the hospital, with no evidence of active bleeding, and normal vital signs it was thought safe to discharge him home on a brat diet with Protonix and Carafate and close follow-up with outpatient surgery as well as a primary care provider. He will see his primary care provider in 3 days with a CBC. He should return for any concerns of bleeding. He was told not to take any anti-inflammatories. He will be on iron for the next month. Elevated blood sugar was noted in the hospital with elevated A1c and he will start on metformin. This can be initiated on February 24. He was told to stop smoking. Secondary to an abnormal EKG on admission, although he never had any chest discomfort and troponin showed no significant trend he will get a Lexiscan may be in approximately 2 weeks. On that initial doherty EKG nonspecific T wave flattening/flipped T waves were noted in the lateral leads. He was given opportunity ask questions, and agreed with the plan. Nuclear stress test will be followed up by his primary care provider. Physical Exam Narrative: General exam no distress Neck is supple Cardiovascular regular in rhythm without murmur Lungs clear Abdomen is soft Extremities no cyanosis clubbing or edema Discharge Data Studies Completed and Pending Completed Studies During Hospitalization Category Date Time Status CT abdomen pelvis w con* [id number] Urgent Cat Scan 02/21/23 00:39 Completed XR chest 1V portable [id number] Stat Exams 02/21/23 00:08 Completed CV. echo complete* [id number] Routine Ultrasound 02/21/23 11:59 Completed Pending at discharge Category Date Time Status Pathology: Surgical [PTH] Routine Pth 02/22/23 14:31 Received Radiology Impressions Chest X-Ray 02/21/23 00:08 IMPRESSION: No acute findings. Abdomen/Pelvis CT 02/21/23 00:39 IMPRESSION: 1. Negative for acute abdominopelvic pathology. 2. No active gastrointestinal bleeding is identified but the assessment is suboptimal without true GI bleed CTA protocol which would also include noncontrast imaging and delayed venous imaging. 3. Multiple secondary findings of advanced liver cirrhosis are present. Laboratory Results WBC 3.45 10^3/uL (3.29-11.43) 02/22/23 05:05 RBC 3.09 10^6/uL (3.85-5.65) L 02/22/23 05:05 Hgb 7.80 g/dL (11.27-16.99) L 02/22/23 05:05 Hct 24.6 % (37-53) L 02/22/23 05:05 MCV 79.6 fl (82-101) L 02/22/23 05:05 MCH 25.2 pg (27-33) L 02/22/23 05:05 MCHC 31.7 g/dL (30-55) D 02/22/23 05:05 RDW 16.8 % (12.1-15.1) H 02/22/23 05:05 Plt Count 96 10^3/cmm (157-399) L 02/22/23 05:05 MPV 10.6 fL (7.4-10.4) H 02/22/23 05:05 Neut % (Auto) 67.0 % 02/22/23 05:05 Lymph % (Auto) 19.7 % 02/22/23 05:05 [place] % (Auto) 10.7 % 02/22/23 05:05 Eos % (Auto) 1.7 % 02/22/23 05:05 Baso % (Auto) 0.6 % 02/22/23 05:05 Neut # (Auto) 2.31 10^3/uL (1.8-7.7) 02/22/23 05:05 Lymph # (Auto) 0.7 10^3/uL (0.8-4.8) L 02/22/23 05:05 [place] # (Auto) 0.4 10^3/uL (0.2-0.9) 02/22/23 05:05 Eos # (Auto) 0.1 10^3/uL (0.0-0.8) 02/22/23 05:05 Baso # (Auto) 0.0 10^3/uL (0.0-0.1) 02/22/23 05:05 Nucleated RBC % (auto) 0 % 02/22/23 05:05 Nucleated RBCs # 0.0 /100WBC 02/22/23 05:05 Peripher Smr Path Cons Sent for review 02/21/23 00:00 PT 15.20 SECONDS (12.1-14.9) H 02/21/23 08:00 INR 1.16 (0.8-1.2) 02/21/23 08:00 Sodium 138 mmol/L (136-145) 02/22/23 05:05 Potassium 3.7 mmol/L (3.5-5.1) 02/22/23 05:05 Chloride 106 mmol/L (98-107) 02/22/23 05:05 Carbon Dioxide 22 mmol/L (22-29) 02/22/23 05:05 Anion Gap 13.7 (5-19) 02/22/23 05:05 BUN 9 mg/dL (8-23) 02/22/23 05:05 Creatinine 0.7 mg/dL (0.7-1.2) 02/22/23 05:05 GFR Calculation 113.5 mL/min (90-130) 02/22/23 05:05 Glucose 155 mg/dL (65-115) H 02/22/23 05:05 POC Glucose 171 mg/dL (70-110) H 02/22/23 11:36 Estimat Average Glucose 163 02/21/23 05:54 Hemoglobin A1c 7.3 % (4.0-6.0) H 02/21/23 05:54 Calculated Osmolality 288 mOsm/kg (285-295) 02/22/23 05:05 Calcium 7.5 mg/dL (8.5-10.5) L 02/22/23 05:05 Magnesium 1.7 mg/dL (1.7-2.3) 02/22/23 05:05 Iron 12 ug/dL (59-158) L 02/21/23 00:00 TIBC 346 mcg/dl 02/21/23 00:00 % Saturation 3.4 % (20-50) L 02/21/23 00:00 Unsat Iron Binding 334 ug/dL (112-347) 02/21/23 00:00 Ferritin 8 ng/mL (30-400) L 02/21/23 00:00 Total Bilirubin 0.6 mg/dL (0.15-1.2) 02/22/23 05:05 GGT 106 U/L (8-61) H 02/21/23 00:00 AST 16 U/L (0-40) 02/22/23 05:05 ALT 14 U/L (0-41) 02/22/23 05:05 Alkaline Phosphatase 113 U/L (40-130) 02/22/23 05:05 Lactate Dehydrogenase 120 U/L (135-225) L 02/21/23 00:00 Creatine Kinase 62 U/L (39-308) 02/21/23 00:00 Troponin T Baseline 15 ng/L (0-15) 02/21/23 00:00 Troponin T 120 Minute 15.33 ng/L (0-15) H 02/21/23 02:25 Delta Troponin T 0.33 ABS# (0-10) 02/21/23 02:25 Troponin T Hi Sens 6Hr 17.06 ng/L (0-15) H 02/21/23 05:54 Troponin T Hi Sens 6Hr Delta 2.06 ng/L (0-12) 02/21/23 05:54 NT-Pro-B Natriuret Pep 84 pg/mL (0-125) 02/21/23 00:00 Total Protein 5.7 g/dL (6.6-8.7) L 02/22/23 05:05 Albumin 2.8 g/dL (3.5-5.2) L 02/22/23 05:05 Globulin 2.9 g/dL (1.3-4.6) 02/22/23 05:05 Lipase 26 U/L (13-60) 02/21/23 00:00 Urine Color Yellow (Yellow) 02/21/23 00:00 Urine Appearance Clear (CLEAR) 02/21/23 00:00 Urine pH 5 (5-7) 02/21/23 00:00 Ur Specific [place] 1.015 (1.005-1.030) 02/21/23 00:00 Urine Protein Neg (Negative) 02/21/23 00:00 Urine Glucose (UA) 4+ (Normal) H 02/21/23 00:00 Urine Ketones Negative (Negative) 02/21/23 00:00 Urine Blood Neg (Negative) 02/21/23 00:00 Urine Nitrate Negative (Negative) 02/21/23 00:00 Urine Bilirubin Neg (Negative) 02/21/23 00:00 Urine Urobilinogen Norm mg/dL (Negative) 02/21/23 00:00 Ur Leukocyte Esterase Negative (Negative) 02/21/23 00:00 Serum Ketones Negative (Negative) 02/21/23 00:00 Hepatitis A IgM Ab Non-reactive (Nonreactive) 02/21/23 08:00 Hep Bs Antigen Non-reactive (Nonreactive) 02/21/23 08:00 Hep B Core IgM Ab Non-reactive (Nonreactive) 02/21/23 08:00 Hepatitis C Antibody Non-reactive (Nonreactive) 02/21/23 08:00 HIV 1&2 Ab & HIV 1 Ag Non-reactive (Non-Reactiv) 02/21/23 08:00 HIV 1&2 Antibody Non-reactive (Non-Reactiv) 02/21/23 08:00 Influenza Type A Ag negative (Negative) 02/21/23 00:00 Influenza Type B Ag negative (Negative) 02/21/23 00:00 SARS-CoV-2 Ag (Rapid) negative (Negative) 02/21/23 00:00 Blood Type O Positive 02/21/23 00:42 Rho(D) Type Rh positive 02/21/23 00:42 Antibody Screen Negative 02/21/23 00:42 Crossmatch See Detail 02/21/23 00:42 Vitals Last Vital Signs Temp 98.1 F 02/22/23 15:27 Pulse 89 02/22/23 15:30 Resp 16 02/22/23 15:30 BP 135/75 02/22/23 15:30 Pulse Ox 97 02/22/23 15:30 O2 Del Method Room Air 02/22/23 15:30 Discharge Plan Discharge Patient Disposition: Home Condition: Stable Prescriptions: New pantoprazole [Protonix] 40 mg tablet,delayed release (DR/EC) 40 mg PO BID 42 Days Qty: 84 1RF sucralfate [Carafate] 1 gram tablet 1 g PO BID 28 Days Qty: 56 0RF ferrous sulfate 325 mg (65 mg iron) tablet,delayed release (DR/EC) 325 mg PO BID Qty: 60 0RF metformin 500 mg tablet 500 mg PO BID Qty: 60 0RF Continued lisinopril 10 mg tablet 10 mg PO DAILY Discharge Orders: Discharge Order (Routine); Ordered 02/22/23 Ordered By: Olman Arredondo Other Ambulatory Orders: Sestamibi Stress Test Request (Routine) Timeframe: 2 Weeks Facility: [facility] - Location: [facility] Ordered By: Olman Arredondo Referrals: Omar Laws DO [Physician] - 2 weeks Noemy Franklin FNP [Nurse Practitioner] - 1-3 days (Follow-up on Tuesday with CBC) Discharge Diet: Diabetic Discharge Activity: Increase activity as tolerated Patient Instructions: GI Discharge Instructions, Opioid Safety Activity Restrictions/Additional Instructions: Please provide information regarding consistent carb diet. Your blood sugar was found to be elevated Start metformin for elevated blood sugar Take Protonix and Carafate for stomach Try to stop tobacco as this can increase stomach acid Iron sulfate 325 mg twice daily for 30 days. Take with meals Your EKG was mildly abnormal when you were severely anemic. Nuclear stress test in approximately 2 weeks, and follow-up with results with primary care provider Return for any concerns Reduce caffeine Do not start metformin until February 24. There is an interaction with radiological dye, and the medication should not be started until then. Do not take any anti-inflammatories. Do not drink any alcohol. Discharge Attestations Time Spent in Discharge Care*: greater than 30 min Quality Metrics Clinical Quality Measures [ No reported AMI, CVA or VTE this stay] Coding Level of Care Code 79185 Total time (in minutes) for Discharge: 35 Diagnoses Epigastric pain R10.13 Thrombocytopenia D69.6 Iron deficiency anemia D50.9
[2023-02-22] MEDS: sucralfate 1 gm Tablet PO (17:42)
--- NOTE | 2023-02-22 18:56 | PC.NURSE ---
Discussed discharge with patient. New medications and continued medications. Follow up visits was discussed and handed patient and order for a Lexiscan. Pointed out the date on the order and stated it was here at the hospital. Patient verbalized understanding of all things.
== END 2023-02-22 19:19 | disposition home or self-care (01) ==
LOC: ER 02-21 03:00 → ER IP 02-21 06:10 → MEDSURG 02-21 13:51
PROVIDERS: Surgery; Admitting Provider Internal Medicine; Emergency Provider Emergency Medicine; Visit Provider Internal Medicine
PROC: 0DJ08ZZ Inspection of Upper Intestinal Tract, Via Natural or Artificial Opening Endoscopic (ICD-10-PCS; CPT 43235; principal; 2023-02-22 14:00)
PROC: 0DJD8ZZ Inspection of Lower Intestinal Tract, Via Natural or Artificial Opening Endoscopic (ICD-10-PCS; CPT 45378; 2023-02-22 14:00)
DX: R10.13 Epigastric pain (principal); D69.6 Thrombocytopenia, unspecified; D50.9 Iron deficiency anemia, unspecified; K62.89 Other specified diseases of anus and rectum; K29.50 Unspecified chronic gastritis without bleeding; G47.30 Sleep apnea, unspecified; I10 Essential (primary) hypertension; F17.210 Nicotine dependence, cigarettes, uncomplicated; E11.65 Type 2 diabetes mellitus with hyperglycemia; F41.1 Generalized anxiety disorder
CPT/HCPCS: 36415; 36416; 36430; 45378; 71045; 74177; 80053; 80074; 80503; 81003; 82009; 82550; 82728; 82962; 82977; 83036; 83540; 83550; 83615; 83690; 83735; 83880; 84484; 85014; 85018; 85025; 85610; 86850; 86900; 86920; 87426; 87804; 87806; 88305; 88342; 93005; 93306; 96361; 96372; 96374; 96375; 99285; C9113; G0121; G0378; J1815; J2270; J2405; J2704; J3010; J7030; P9016; Q9967

== ENCOUNTER → 2023-02-25 09:35 | Outpatient (BNVA) | payer MEDICARE, MEDICAID, SELFPAY | PROVIDERS: PCP Family Medicine; Visit Provider Family Medicine | DX: D64.9 Anemia, unspecified (principal) | CPT/HCPCS: 85025 ==

== ENCOUNTER → 2023-03-10 09:16 | Outpatient (BNVA) | payer MEDICARE, MEDICAID, SELFPAY | PROVIDERS: PCP Family Medicine; Visit Provider Surgery | DX: Z76.89 Persons encountering health services in other specified circumstances (principal); Z09 Encounter for follow-up examination after completed treatment for conditions other than malignant neoplasm; K59.00 Constipation, unspecified; D50.9 Iron deficiency anemia, unspecified | CPT/HCPCS: 99204; 99214 ==